=== PATIENT | male | born 1980 | race Caucasian/White ===

== ENCOUNTER → 2016-10-08 | Outpatient (CLI) | payer BC ==
[2016-10-08 08:52] LABS: HEMOGLOBIN A1C 9.11 % (4.2-6.0); MEAN BLOOD GLUCOSE (CALC) 217.363 mg/dL
[2016-10-08 09:07] LABS: ASPARTATE AMINO TRANSFERASE 22 IU/L (21-57); BILIRUBIN,TOTAL 0.7 mg/dL (0.3-1.2); BLOOD UREA NITROGEN 14 mg/dL (7-22); CHLORIDE 102 meq/L (98-112); EST GLOMERULAR FILTRATION > 60 (>60 ml/min/1.73m(2)); GLUCOSE 209 mg/dL (78-110); HDL CHOLESTEROL 29 mg/dL (40-150); POTASSIUM 4.8 meq/L (3.8-5.2); SODIUM 141 meq/L (135-145); TOTAL PROTEIN 7.6 g/dL (6.1-8.0); TRIGLYCERIDES 248 mg/dL (44-200)
== END ==
LOC: LAB 08:14
PROVIDERS: ATTEND Family Medicine
DX: E11.9 Type 2 diabetes mellitus without complications (principal); I10 Essential (primary) hypertension; E78.1 Pure hyperglyceridemia; F17.210 Nicotine dependence, cigarettes, uncomplicated
CPT/HCPCS: 36415; 80053; 80061; 83036

== ENCOUNTER → 2017-01-07 | Outpatient (CLI) | payer BC ==
[2017-01-07 09:05] LABS: BLOOD UREA NITROGEN 15 mg/dL (7-22); CALCIUM 9.7 mg/dL (8.7-10.7); CHOL/HDL RATIO 5.89 RATIO (0-4.0); EST GLOMERULAR FILTRATION > 60 (>60 ml/min/1.73m(2)); HDL CHOLESTEROL 28 mg/dL (40-150); SERUM ALBUMIN 4.7 g/dL (3.5-4.8); SERUM CHOLESTEROL 165 mg/dL (120-200)
[2017-01-07 09:07] LABS: HEMOGLOBIN A1C 8.47 % (4.2-6.0)
[2017-01-07 09:21] LABS: FREE T4 (FREE THYROXINE) 0.99 ng/dL (0.93-1.71)
== END ==
LOC: LAB 08:17
PROVIDERS: ATTEND Family Medicine
DX: E11.9 Type 2 diabetes mellitus without complications (principal); E78.1 Pure hyperglyceridemia; I10 Essential (primary) hypertension
CPT/HCPCS: 36415; 80053; 80061; 83036; 84439; 84443

== ENCOUNTER → 2017-04-08 | Outpatient (CLI) | payer BC ==
[2017-04-08 08:41] LABS: HEMATOCRIT 47.9 % (42.0-52.0); HEMOGLOBIN 16.9 g/dL (14.0-18.0); MEAN CORPUSCULAR HEMOGLOBIN 29.6 PG (27-31); RED BLOOD COUNT 5.7 10^6/uL (4.70-6.10)
[2017-04-08 08:42] LABS: MEAN CORPUSCULAR HGB CONC 35.3 g/dL (33-37); MEAN PLATELET VOLUME 11.7 FL (7.4-12.2)
[2017-04-08 09:31] LABS: BLOOD UREA NITROGEN 16 mg/dL (7-22); CALCIUM 9.9 mg/dL (8.7-10.7); CHOL/HDL RATIO 3.37 RATIO (0-4.0); EST GLOMERULAR FILTRATION > 60 (>60 ml/min/1.73m(2)); HDL CHOLESTEROL 32 mg/dL (40-150); SERUM ALBUMIN 4.7 g/dL (3.5-4.8); SERUM CHOLESTEROL 108 mg/dL (120-200)
[2017-04-08 09:53] LABS: HEMOGLOBIN A1C 8.81 % (4.2-6.0)
== END ==
LOC: LAB 08:23
PROVIDERS: ATTEND Family Medicine
DX: E11.9 Type 2 diabetes mellitus without complications (principal); E78.1 Pure hyperglyceridemia; I10 Essential (primary) hypertension
CPT/HCPCS: 36415; 80053; 80061; 83036; 85027